=== PATIENT | male | born 1995 | race Caucasian/White ===

== ENCOUNTER 2017-01-05 20:58 | Emergency (ER) | payer OTHER ==
[~2017-01-05] VITALS: Ht 172.7 cm; Wt 73.5 kg
[2017-01-05] MEDS ORDERED: ADACEL/BOOSTRIX VACCINE (DIPHTH/PERTUSS/ACELL/TETANUS)0.5ML SYR (90715) IM ONE (23:45)
[2017-01-05] MEDS ORDERED: LIDOCAINE 2% MDV 20 ML VIAL SC ONE (23:45)
[2017-01-06] MEDS ORDERED: AUGM875T27 PO (00:29)
[2017-01-06] MEDS ORDERED: AUGMENTIN 875 MG TAB PO ONE (00:30)
[2017-01-06 00:49] VITALS: BP 133/77
--- NOTE | 2017-01-06 03:53 | REP ---
Clinical: Trauma. Technique: AP, lateral, bilateral oblique views left foot. Findings: The osseous structures and joint spaces are intact and normal. There is no evidence for acute fracture or dislocation. Surrounding soft tissues are unremarkable. No subcutaneous emphysema or radiodense foreign body. Impression: Normal examination. No acute fracture or dislocation. Signed by Ignacio Avendaño MD 01/06/2017 03:45 A
== END 2017-01-06 00:52 | disposition home or self-care (01) ==
LOC: M ED 22:10
DX: S91.312A Laceration without foreign body, left foot, initial encounter (principal); W22.09XA Striking against other stationary object, initial encounter; Y92.098 Other place in other non-institutional residence as the place of occurrence of the external cause; Y93.89 Activity, other specified; Y99.8 Other external cause status